=== PATIENT | female | born 1970 | race Caucasian/White ===

== ENCOUNTER 2021-05-07 20:55 | Emergency (ER) | payer BC, MEDICAID ==
[2021-05-07] MEDS ORDERED: diphenhydrAMINE 25 MG Cap PO ONE (20:57)
[2021-05-07] MEDS ORDERED: methylPREDNISolone Sodium Succinate 125 MG/2 ML SDV IM ONE (20:58)
--- NOTE | 2021-05-07 21:29 | EDM.PDOC ---
ED HPI GENERAL MEDICAL PROBLEM - General Chief Complaint: Allergic Reaction Stated Complaint: BEE STING REACTION Time Seen by Provider: 05/07/21 20:55 Source of Information: Reports: Patient, Family History Limitations: Reports: No Limitations - History of Present Illness INITIAL COMMENTS - FREE TEXT/NARRATIVE: pt arrived after being stung by a bee 1.5 hours earlier. She was stung on the rt hand. She did develop local swelling but no hives or generalized reaction. Onset: Today, Sudden Duration: Hour(s): Location: Reports: Upper Extremity, Right Associated Symptoms: Reports: Other (pt was very anxious on arrival but she did not have any generalized reaction. ) Right Finger-Ring Pain Score (Numeric/FACES): 9 - Related Data Allergies Allergy/AdvReac Type Severity Reaction Status Date / Time bee venom protein (honey bee) Allergy Hives Verified 05/07/21 21:03 codeine Allergy Nausea and Verified 05/07/21 21:03 Vomiting hydroxyzine [From Atarax] Allergy Nausea and Verified 05/07/21 21:03 Vomiting Home Meds: Home Meds Calcium Carbonate [Calcium] 500 mg PO DAILY 05/07/21 [History] Ferrous Fumarate/Vitamin C [Vitron-C] 1 tab PO DAILY 05/07/21 [History] Mecobalamin [B12 Active] 1,500 mcg PO DAILY 05/07/21 [History] Multivitamin with Minerals [Multiple Vitamin] 1 tab PO DAILY 05/07/21 [History] Gravity-3/DHA/Epa/Fish Oil [Fish Oil 500 MG Softgel] 1 each PO DAILY 05/07/21 [History] PARoxetine [Paxil] 20 mg PO TID 05/07/21 [History] Vitamin B Complex [B Complex] 1 each PO DAILY 05/07/21 [History] Past Medical History HEENT History: Reports: Impaired Vision Respiratory History: Reports: COPD Gastrointestinal History: Reports: Bowel Obstruction, Chronic Diarrhea, GERD Musculoskeletal History: Reports: Back Pain, Chronic Neurological History: Reports: Concussion Psychiatric History: Reports: Addiction, Anxiety, Depression Endocrine/Metabolic History: Reports: Obesity/BMI 30+ Hematologic History: Reports: Anemia, B12 Deficiency - Infectious Disease History Infectious Disease History: Reports: Chicken Pox - Past Surgical History GI Surgical History: Reports: Bariatric Procedure, Colostomy, EGD, Small Bowel Social & Family History - Tobacco Use Tobacco Use Status *Q: Current Every Day Tobacco User Years of Tobacco use: 30 Packs/Tins Daily: 0.5 - Caffeine Use Caffeine Use: Reports: Coffee - Alcohol Use Days Per Week of Alcohol Use: 7 Number of Drinks Per Day: 6 Total Drinks Per Week: 42 - Recreational Drug Use Recreational Drug Use: No ED ROS ALLERGIC REACTION - Review of Systems Review Of Systems: See Below Constitutional: Reports: No Symptoms HEENT: Reports: No Symptoms Respiratory: Reports: No Symptoms, Other Cardiovascular: Reports: No Symptoms Endocrine: Reports: No Symptoms GI/Abdominal: Reports: No Symptoms : Reports: No Symptoms Musculoskeletal: Reports: No Symptoms Skin: Reports: No Symptoms Neurological: Reports: Dizziness Psychiatric: Reports: No Symptoms ED EXAM GENERAL NO PERIP PULSE - Physical Exam Exam: See Below Text/Narrative:: pt arrived very anxious. She did not have hives and she did not have the generalized redness. her vitals were good. Exam Limited By: No Limitations General Appearance: Alert, Anxious Ears: Normal TMs Nose: Normal Inspection Throat/Mouth: Normal Inspection Head: Atraumatic Neck: Normal Inspection Respiratory/Chest: No Respiratory Distress Cardiovascular: Regular Rate, Rhythm GI/Abdominal: Soft, Non-Tender (Female) Exam: Deferred Rectal (Female) Exam: Deferred Back Exam: Normal Inspection Extremities: Other (pt has a swollen ring finger no hives or generalized redness. ) Neurological: Alert, Oriented, Normal Cognition Psychiatric: Anxious Course - Vital Signs Last Recorded V/S: Last Vital Signs Temp 36.7 C 05/07/21 20:59 Pulse 89 05/07/21 20:59 Resp 16 05/07/21 20:59 BP 118/69 05/07/21 20:59 Pulse Ox 99 05/07/21 20:59 - Orders/Labs/Meds Meds: Medications Discontinued Medications Generic Name Dose Route Start Last Admin Trade Name Freq PRN Reason Stop Dose Admin Diphenhydramine HCl 50 mg 05/07/21 20:57 Diphenhydramine 25 Mg Cap PO 05/07/21 20:58 ONETIME ONE Diphenhydramine HCl 50 mg 05/07/21 21:43 05/07/21 21:16 Diphenhydramine 50 Mg/Ml Sdv IM 05/07/21 21:44 50 mg ONETIME ONE Administration Methylprednisolone Sodium Succinate 125 mg 05/07/21 20:58 05/07/21 21:16 Methylprednisolone Sodium Succinate 125 Mg/2 Ml Sdv IM 05/07/21 20:59 125 mg ONETIME ONE Administration - Re-Assessments/Exams Free Text/Narrative Re-Assessment/Exam: 05/07/21 21:28 pt was given benadryl 50 mg im and solumedrol 125 im. Pt continued to have normal vital signs. pt was very anxious and was hyperventilating. 05/16/21 10:28 Departure - Departure Time of Disposition: 21:39 Disposition: Home, Self-Care 01 Condition: Fair Clinical Impression: Local reaction to bee sting - Discharge Information Instructions: Bee, Wasp, or Hornet Sting, Adult Referrals: Imer Abernathy Sr, MD [Primary Care Provider] - Forms: ED Department Discharge Care Plan Goals: cool pack finger, benadryl 50 mg q6h for 2 more doses. rtc if problems. Sepsis Event Note (ED) - Evaluation Sepsis Screening Result: No Definite Risk
[2021-05-07] MEDS ORDERED: diphenhydrAMINE 50 MG/ML SDV IM ONE (21:43)
== END 2021-05-07 21:50 | disposition home or self-care (01) ==
LOC: JP.ED 20:55
DX: T63.441A Toxic effect of venom of bees, accidental (unintentional), initial encounter (principal); J44.9 Chronic obstructive pulmonary disease, unspecified; D64.9 Anemia, unspecified; E66.9 Obesity, unspecified; Z68.37 Body mass index [BMI] 37.0-37.9, adult; Z72.0 Tobacco use; Z91.030 Bee allergy status; Z88.5 Allergy status to narcotic agent; Z88.8 Allergy status to other drugs, medicaments and biological substances; Z79.899 Other long term (current) drug therapy
CPT/HCPCS: 96372; 99282; J1200; J2930

== ENCOUNTER 2021-07-18 05:46 | Day surgery (SDC) | payer SELFPAY ==
[2021-07-18] MEDS ORDERED: Sodium Chloride 0.9% 1,000 ML IV SCH (07:00)
[2021-07-18] MEDS ORDERED: Propofol 200 MG/20 ML SDV ONE (07:06)
[2021-07-18] MEDS ORDERED: Midazolam 1 MG/ML 2 ML SDV ONE (07:06)
[2021-07-18] MEDS ORDERED: fentaNYL 100 MCG/2 ML SDV ONE (07:06)
[2021-07-18] MEDS ORDERED: Pantoprazole 40 MG Vial IVPUSH ONE (07:43)
--- NOTE | 2021-07-18 09:20 | PROC ---
DATE OF PROCEDURE: 07/18/2021 SURGEON: Imer Abernathy MD INDICATIONS: Leighann is a 51-year-old female who comes in for an esophagogastroduodenoscopy as she has had significant abdominal pain for a week and then 4 days ago she started to pass black stools. Her abdominal pain is significant to the point she almost came to the emergency room last night. The risks and benefits were explained to the patient for an esophagogastroduodenoscopy. PROCEDURE IN DETAIL: During the procedure, we used 2 mg of Versed, 200 mg of Propofol. The Olympus 180 scope was used, was placed into the mouth into the pharynx without difficulty and advanced under direct vision through the esophagus. Immediately upon entering the stomach, immediately noted a gastric ulcer. 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 We advanced the tube into the duodenum and no abnormality was found. The tube was brought back into the stomach. The ulcer was again identified, pictures were taken, and biopsies were done. Air was withdrawn from the stomach and small intestine. The tube was slowly retracted. No other abnormality was noted in the esophagus. The vocal cords moved symmetrically. No obvious pathology noted. PREOPERATIVE DIAGNOSIS: Abdominal pain. POSTOPERATIVE DIAGNOSIS: Gastric ulcer, biopsy report pending. Imer Abernathy MD /[id number] MTDD
== END 2021-07-18 08:56 | disposition home or self-care (01) ==
LOC: JP.SDS 05:46
PROVIDERS: ATTEND Internal Medicine
DX: K25.9 Gastric ulcer, unspecified as acute or chronic, without hemorrhage or perforation (principal); K31.89 Other diseases of stomach and duodenum; K29.50 Unspecified chronic gastritis without bleeding; I10 Essential (primary) hypertension; Z98.84 Bariatric surgery status
CPT/HCPCS: 43239; C9113; J2250; J2704; J3010; J7030; 88305

== ENCOUNTER 2021-08-10 06:30 | Day surgery (SDC) | payer MEDICAID ==
[2021-08-10] MEDS ORDERED: Sodium Chloride 0.9% 1,000 ML IV SCH (07:00)
[2021-08-10] MEDS ORDERED: Propofol 200 MG/20 ML SDV ONE ×3 (07:21→08:00)
[2021-08-10] MEDS ORDERED: fentaNYL 100 MCG/2 ML SDV ONE (07:22)
[2021-08-10] MEDS ORDERED: Midazolam 1 MG/ML 2 ML SDV ONE (07:22)
--- NOTE | 2021-08-10 14:56 | PROC ---
DATE OF PROCEDURE: SURGEON: Imer Abernathy MD INDICATIONS: Leighann is having significant abdominal pain on the left side of her abdomen on the upper and mid abdomen area. She recently had a CT of the abdomen, which showed thickening of the abdominal wall. The thickening was found in the ascending at the splenic flexure area. The risks and benefits were explained to Leighann for a colonoscopy. PROCEDURE IN DETAIL: Anesthesia was given by nurse precision mechanical instrument maker. During the procedure, we used 2 mg of Versed, 2 mcg of fentanyl, and 600 mg of propofol. The Olympus 180L scope was used, placed into rectum, and advanced under direct vision. At 60 cm, noted a polyp. This was biopsied. We noticed another polyp at the cecum. Finally, we took a picture of the cecum. Upon retraction of the tube, noted no lesions or ulceration. No abnormality except for the biopsy we did at 60 cm. No other lesions were noted. The tube was removed. The patient tolerated the procedure well. PREOPERATIVE DIAGNOSIS: Abdominal pain. POSTOPERATIVE DIAGNOSES: Two polyps biopsied, one at 60 cm and one at the cecum. Pathology report pending. I see no evidence of the thickening of the bowel wall at the splenic flexure as seen on the CT of the abdomen. Imer Abernathy MD /[id number]
== END 2021-08-10 09:10 | disposition home or self-care (01) ==
LOC: JP.SDS 06:30
PROVIDERS: ATTEND Internal Medicine
DX: D12.0 Benign neoplasm of cecum (principal); D12.6 Benign neoplasm of colon, unspecified; I10 Essential (primary) hypertension; Z01.812 Encounter for preprocedural laboratory examination; Z20.822 Contact with and (suspected) exposure to COVID-19
CPT/HCPCS: 45380; 87635; J2250; J2704; J3010; J7030; 88305; U0002

== ENCOUNTER 2021-09-27 14:13 | Emergency (ER) | payer MEDICAID ==
[2021-09-27 16:25] LABS: CORONAVIRUS COVID-19 NAA NEGATIVE (NEGATIVE)
[2021-09-27] MEDS ORDERED: Albuterol/Ipratropium 3.0-0.5 MG/3 ML Neb Soln NEB ONE (16:57)
--- NOTE | 2021-09-27 16:59 | EDM.PDOC ---
ED HPI GENERAL MEDICAL PROBLEM - General Chief Complaint: Respiratory Problem Stated Complaint: SHORTNESS OF BREATH Time Seen by Provider: 09/27/21 16:52 Source of Information: Reports: Patient, RN Notes Reviewed History Limitations: Reports: No Limitations - History of Present Illness INITIAL COMMENTS - FREE TEXT/NARRATIVE: 51-year-old female presents emergency department day complaint of shortness of breath, she has known history of COPD with an asthmatic component. She states she has been taking care of her family member with Covid is unvaccinated and was concerned she may have contracted the disease. - Related Data Allergies Allergy/AdvReac Type Severity Reaction Status Date / Time bee venom protein (honey bee) Allergy Hives Verified 09/27/21 15:20 codeine AdvReac Nausea and Verified 09/27/21 15:20 Vomiting hydroxyzine [From Atarax] AdvReac Nausea and Verified 09/27/21 15:20 Vomiting Home Meds: Home Meds Mecobalamin [B12 Active] 2,500 mcg PO DAILY 05/07/21 [History] Multivitamin with Minerals [Multiple Vitamin] 1 tab PO DAILY 05/07/21 [History] Vitamin B Complex [B Complex] 1 each PO DAILY 05/07/21 [History] Iron,Carbonyl/Ascorbic Acid [Vitron-C Tablet] 1 tab PO Q48H 07/17/21 [History] Pantoprazole Sodium [Protonix] 40 mg PO BID 07/17/21 [History] Albuterol [Proventil Neb Soln] 2.5 mg INH ASDIRECTED 07/18/21 [History] Albuterol [Proventil Neb Soln] 3 ml INH QID 09/27/21 [History] Past Medical History HEENT History: Reports: Impaired Vision Cardiovascular History: Reports: Hypertension Respiratory History: Reports: COPD Gastrointestinal History: Reports: Bowel Obstruction, Chronic Diarrhea, GERD Genitourinary History: Reports: Renal Calculus ACCESS REPRESENTATIVE History: Reports: None Musculoskeletal History: Reports: Back Pain, Chronic Neurological History: Reports: Concussion Psychiatric History: Reports: Addiction, Anxiety, Depression Endocrine/Metabolic History: Reports: Obesity/BMI 30+ Hematologic History: Reports: Anemia, B12 Deficiency Immunologic History: Reports: None Oncologic (Cancer) History: Reports: None Dermatologic History: Reports: None - Infectious Disease History Infectious Disease History: Reports: Chicken Pox - Past Surgical History Head Surgeries/Procedures: Reports: None HEENT Surgical History: Reports: Myringotomy w Tube(s), Tonsillectomy Cardiovascular Surgical History: Reports: None Respiratory Surgical History: Reports: None GI Surgical History: Reports: Bariatric Procedure, Colonoscopy, EGD, Hernia Repair/Other, Small Bowel Female Surgical History: Reports: Cystoscopy, Other (See Below) Other Female Surgeries/Procedures: NEPHROSTOGRAM Endocrine Surgical History: Reports: None Neurological Surgical History: Reports: None Oncologic Surgical History: Reports: None Dermatological Surgical History: Reports: None Social & Family History - Family History Family Medical History: No Pertinent Family History - Tobacco Use Tobacco Use Status *Q: Current Every Day Tobacco User Years of Tobacco use: 35 Packs/Tins Daily: 0.5 - Caffeine Use Caffeine Use: Reports: Coffee - Alcohol Use Days Per Week of Alcohol Use: 4 Number of Drinks Per Day: 3 Total Drinks Per Week: 12 - Recreational Drug Use Recreational Drug Use: No ED ROS GENERAL - Review of Systems Review Of Systems: See Below Constitutional: Denies: Fever, Chills HEENT: Reports: No Symptoms Respiratory: Reports: Shortness of Breath, Cough. Denies: Sputum Cardiovascular: Reports: Dyspnea on Exertion GI/Abdominal: Reports: No Symptoms ED EXAM, GENERAL - Physical Exam Exam: See Below Exam Limited By: No Limitations General Appearance: Alert, WD/WN, No Apparent Distress Respiratory/Chest: No Accessory Muscle Use, Chest Non-Tender, Decreased Breath Sounds. No: Wheezing Cardiovascular: Regular Rate, Rhythm, No Murmur Course - Vital Signs Last Recorded V/S: Last Vital Signs Temp 96.1 F L 09/27/21 17:21 Pulse 71 09/27/21 17:21 Resp 18 09/27/21 17:21 BP 122/64 09/27/21 17:21 Pulse Ox 98 09/27/21 17:21 - Orders/Labs/Meds Orders: Active Orders 24 hr Category Date Time Status RT Aerosol Therapy [RC] ASDIRECTED Care 09/27/21 16:57 Active Isolation [COMM] Stat Oth 09/27/21 14:14 Ordered Labs: Laboratory Tests 09/27/21 09/27/21 09/27/21 Range/Units 15:35 17:07 17:07 WBC 4.8 (4.5-11.0) K/uL RBC 3.58 (3.30-5.50) M/uL Hgb 11.5 L (12.0-15.0) g/dL Hct 34.0 L (36.0-48.0) % MCV 95 (80-98) fL MCH 32 H (27-31) pg MCHC 34 (32-36) % Plt Count 169 (150-400) K/uL Neut % (Auto) 47.9 (36-66) % Lymph % (Auto) 44.6 H (24-44) % [place] % (Auto) 6.3 H (2-6) % Eos % (Auto) 0.8 L (2-4) % Baso % (Auto) 0.4 (0-1) % Sodium 139 L (140-148) mmol/L Potassium 4.1 (3.6-5.2) mmol/L Chloride 105 (100-108) mmol/L Carbon Dioxide 23 (21-32) mmol/L Anion Gap 15.1 H (5.0-14.0) mmol/L BUN 11 (7-18) mg/dL Creatinine 0.6 (0.6-1.0) mg/dL Est Cr Clr Drug Dosing TNP Estimated GFR (MDRD) > 60 (>60) Glucose 88 (74-106) mg/dL Lactic Acid (0.4-2.0) mmol/L Calcium 8.2 L (8.5-10.1) mg/dL Total Bilirubin 0.3 (0.2-1.0) mg/dL AST 31 (15-37) U/L ALT 26 (12-78) U/L Alkaline Phosphatase 89 (46-116) U/L Total Protein 6.6 (6.4-8.2) g/dL Albumin 3.4 (3.4-5.0) g/dL Globulin 3.2 (2.3-3.5) g/dL Albumin/Globulin Ratio 1.1 L (1.2-2.2) Influenza Type A RNA Negative (NEGATIVE) RSV RNA (INAAT) Negative (NEGATIVE) Influenza Type B RNA Negative (NEGATIVE) SARS-CoV-2 RNA (CESIA) Negative (NEGATIVE) 09/27/21 Range/Units 17:07 WBC (4.5-11.0) K/uL RBC (3.30-5.50) M/uL Hgb (12.0-15.0) g/dL Hct (36.0-48.0) % MCV (80-98) fL MCH (27-31) pg MCHC (32-36) % Plt Count (150-400) K/uL Neut % (Auto) (36-66) % Lymph % (Auto) (24-44) % [place] % (Auto) (2-6) % Eos % (Auto) (2-4) % Baso % (Auto) (0-1) % Sodium (140-148) mmol/L Potassium (3.6-5.2) mmol/L Chloride (100-108) mmol/L Carbon Dioxide (21-32) mmol/L Anion Gap (5.0-14.0) mmol/L BUN (7-18) mg/dL Creatinine (0.6-1.0) mg/dL Est Cr Clr Drug Dosing Estimated GFR (MDRD) (>60) Glucose (74-106) mg/dL Lactic Acid 3.2 H (0.4-2.0) mmol/L Calcium (8.5-10.1) mg/dL Total Bilirubin (0.2-1.0) mg/dL AST (15-37) U/L ALT (12-78) U/L Alkaline Phosphatase (46-116) U/L Total Protein (6.4-8.2) g/dL Albumin (3.4-5.0) g/dL Globulin (2.3-3.5) g/dL Albumin/Globulin Ratio (1.2-2.2) Influenza Type A RNA (NEGATIVE) RSV RNA (INAAT) (NEGATIVE) Influenza Type B RNA (NEGATIVE) SARS-CoV-2 RNA (CESIA) (NEGATIVE) Meds: Medications Discontinued Medications Generic Name Dose Route Start Last Admin Trade Name Freq PRN Reason Stop Dose Admin Albuterol/Ipratropium 3 ml 09/27/21 16:57 09/27/21 17:18 Albuterol/Ipratropium 3.0-0.5 Mg/3 Ml Neb Soln NEB 09/27/21 16:58 3 ml ONETIME ONE Administration Departure - Departure Time of Disposition: 18:12 Disposition: Home, Self-Care 01 Condition: Fair Clinical Impression: COPD exacerbation - Discharge Information Instructions: Chronic Obstructive Pulmonary Disease Exacerbation Referrals: PCP,Unknown [Primary Care Provider] - Forms: ED Department Discharge Additional Instructions: Take full course of antibiotics, take full course of prednisone, use the albuterol inhaler as needed for shortness of breath, please followup with your primary care provider in 3-5 days if not better, please call return to the emergency department with worsening of symptoms. Sepsis Event Note (ED) - Evaluation Sepsis Screening Result: No Definite Risk - Focused Exam Vital Signs: Vital Signs Temp Pulse Resp BP Pulse Ox 09/27/21 17:21 96.1 F L 71 18 122/64 98 09/27/21 17:08 96.1 F L 09/27/21 16:50 74 18 99/57 L 99 09/27/21 16:38 77 114/58 L 95 09/27/21 16:20 77 18 112/61 98 09/27/21 15:45 84 18 118/52 L 98 09/27/21 15:28 95.9 F L 82 18 114/50 L 97 - My Orders Last 24 Hours: My Active Orders 09/27/21 14:14 Isolation [COMM] Stat 09/27/21 16:57 RT Aerosol Therapy [RC] ASDIRECTED - Assessment/Plan Last 24 Hours: My Active Orders 09/27/21 14:14 Isolation [COMM] Stat 09/27/21 16:57 RT Aerosol Therapy [RC] ASDIRECTED Plan: Assessment Acuity = acute Site and laterality = COPD exacerbation Etiology = suspicious for bacterial cause Manifestations = cough, wheezing at night Location of injury = Home Lab values = CBC CMP unremarkable lactic acid was elevated 3.5 consistent with lactic acidosis uncertain significance Plan Given her history of chronic lung disease elevated lactic acid elected to cover her doxycycline 100 mg p.o. twice daily x7 days, prednisone 20 mg once a day for 5 days and then a new albuterol inhaler she will follow-up with her primary care in 3 to 5 days for reevaluation This note was dictated using [employer] voice recognition software please call with any questions on syntax or grammar.
--- NOTE | 2021-09-27 17:50 | CRLCR ---
For Patients: As a result of the Cures Act, medical imaging exams and procedure reports are released immediately into your electronic medical record. You may view this report before your referring provider. If you have questions, please contact your health care provider. Indication: Shortness of breath, COPD. Technique: Chest 2 views. Comparison: None. Findings: Cardiovascular and mediastinum: Heart size and vasculature are normal in caliber and appearance. Lungs and pleural spaces: Lungs are clear. No sign of infiltrate or mass. No sign of pleural effusion. No pneumothorax. Bones and soft tissues: No significant findings. Impression: No acute or significant findings. Dictated by Peter Jimenez MD @ 09/27/2021 5:49:32 PM (Electronically Signed)
== END 2021-09-27 18:40 | disposition home or self-care (01) ==
LOC: JP.ED 14:13
DX: J44.1 Chronic obstructive pulmonary disease with (acute) exacerbation (principal); I10 Essential (primary) hypertension; E66.9 Obesity, unspecified; Z68.30 Body mass index [BMI] 30.0-30.9, adult; Z91.030 Bee allergy status; Z72.0 Tobacco use; Z20.822 Contact with and (suspected) exposure to COVID-19
CPT/HCPCS: 0241U; 36415; 71046; 80053; 83605; 85025; 94640; 99285; J7620-GY

== ENCOUNTER 2023-01-14 08:58 | Day surgery (SDC) | payer MEDICAID ==
[2023-01-14] MEDS ORDERED: Sodium Chloride 0.9% 1,000 ML IV SCH (09:30)
[2023-01-14] MEDS ORDERED: Midazolam 1 MG/ML 2 ML SDV ONE (09:38)
[2023-01-14] MEDS ORDERED: Propofol 200 MG/20 ML SDV ONE (09:38)
[2023-01-14] MEDS ORDERED: fentaNYL 100 MCG/2 ML SDV ONE (09:38)
== END 2023-01-14 11:30 | disposition home or self-care (01) ==
LOC: JP.SDS 08:58
PROVIDERS: ATTEND Internal Medicine
DX: R19.7 Diarrhea, unspecified (principal); R10.9 Unspecified abdominal pain; J44.9 Chronic obstructive pulmonary disease, unspecified; I10 Essential (primary) hypertension; F32.A Depression, unspecified; N20.0 Calculus of kidney; E66.9 Obesity, unspecified; Z88.5 Allergy status to narcotic agent; Z88.8 Allergy status to other drugs, medicaments and biological substances; Z98.84 Bariatric surgery status; Z68.33 Body mass index [BMI] 33.0-33.9, adult
CPT/HCPCS: 43235; J2250; J2704; J3010; J7030

== ENCOUNTER 2023-02-08 07:14 | Emergency (ER) | payer MEDICAID ==
[2023-02-08] MEDS ORDERED: Ketorolac 30 MG/ML SDV IM ONE (07:51)
[2023-02-08] MEDS ORDERED: Methocarbamol 500 MG Tab PO ONE (07:51)
== END 2023-02-08 09:55 | disposition home or self-care (01) ==
LOC: JP.ED 07:14
DX: S16.1XXA Strain of muscle, fascia and tendon at neck level, initial encounter (principal); S00.83XA Contusion of other part of head, initial encounter; I10 Essential (primary) hypertension; J44.9 Chronic obstructive pulmonary disease, unspecified; E66.9 Obesity, unspecified; Z91.030 Bee allergy status; Z88.5 Allergy status to narcotic agent; Z91.011 Allergy to milk products; Z72.0 Tobacco use; Z68.34 Body mass index [BMI] 34.0-34.9, adult; W01.0XXA Fall on same level from slipping, tripping and stumbling without subsequent striking against object, initial encounter; Y92.009 Unspecified place in unspecified non-institutional (private) residence as the place of occurrence of the external cause
CPT/HCPCS: 72125; 76377; 96372; 99283; 99284; A9270-GY; J1885

== ENCOUNTER → 2024-01-12 | Day surgery (SDC) | payer MEDICAID ==
[~2024-01-12] MED LIST: Propofol 200 MG/20 ML SDV ONE; fentaNYL 50 MCG/ML SDV ONE
[2024-01-12 11:18] LABS: BASOPHILS PERCENT AUTO 0.4 % (0.1-1.3); EOSINOPHILS ABSOLUTE AUTO 0.05 K/uL (0.00-0.40); EOSINOPHILS PERCENT AUTO 0.9 % (0.0-5.4); HEMATOCRIT 36.7 % (34.3-46.0); HEMOGLOBIN 12.9 g/dL (11.2-15.5); IMMATURE GRAN PERCENT AUTO 0.2 % (0.0-0.7); LYMPHOCYTES ABSOLUTE AUTO 1.12 K/uL (0.8-3.3); LYMPHOCYTES PERCENT AUTO 20.1 % (11.4-47.7); MEAN CORPUSCULAR HEMOGLOBIN 39.3 pg (31.6-35.5); MEAN CORPUSCULAR HGB CONC 35.1 g/dL (31.6-35.5); MEAN CORPUSCULAR VOLUME 111.9 fL (81.4-99.0); MONOCYTES ABSOLUTE AUTO 0.44 K/uL (0.20-0.90); MONOCYTES PERCENT AUTO 7.9 % (3.3-12.6); NEUTROPHILS ABSOLUTE AUTO 3.93 K/uL (1.0-7.6); NEUTROPHILS PERCENT AUTO 70.5 % (40.0-78.1); PLATELET COUNT,PLT 208 K/uL (130-375); WHITE BLOOD CELL COUNT,WBC 5.6 K/uL (3.2-11.0)
[2024-01-12] MEDS: Sodium Chloride 0.9% 1,000 ML IV SCH (11:20)
[2024-01-12] MEDS: Acetaminophen 1,000 MG in Premix Bag 1 BAG IV ONE (11:21)
[2024-01-12] MEDS: Ondansetron 4 MG/2 ML SDV IVPUSH ONE (11:22)
[2024-01-12 11:35] LABS: INR 1.1; PROTHROMBIN TIME 10.7 sec (9.2-10.6)
[2024-01-12 11:39] LABS: BASOPHILS ABSOLUTE AUTO 0.02 K/uL (0.00-0.10); IMMATURE GRAN ABSOLUTE AUTO 0.01 K/uL (0.00-0.23); RED BLOOD CELL COUNT 3.28 M/uL (3.77-5.24)
[2024-01-12 11:43] LABS: ALANINE AMINOTRANSFERASE,ALT 41 U/L (12-78); ALKALINE PHOSPHATASE 144 U/L (46-116); ASPARTATE AMNIOTRANSFERASE,AST 37 U/L (15-37); BILIRUBIN TOTAL 0.8 mg/dL (0.2-1.0); BLOOD UREA NITROGEN,BUN 12 mg/dL (7-18); CALCIUM 8.7 mg/dL (8.5-10.1); CARBON DIOXIDE,CO2 22 mmol/L (21-32); CHLORIDE,CL 102 mmol/L (100-108); CREATININE 0.6 mg/dL (0.6-1.0); EST CRCL DRUG DOSING (CG) 97.57 mL/min; ESTIMATED GFR 107 mL/min (>60); GLUCOSE RANDOM 86 mg/dL (74-106); POTASSIUM,K 4.3 mmol/L (3.6-5.2); SODIUM,NA 137 mmol/L (140-148)
[2024-01-12 11:44] LABS: ANION GAP 17.3 mmol/L (5.0-14.0); TROPONIN I HIGH SENSITIVITY 5.1 pg/mL (<=60.3)
[2024-01-12 11:56] LABS: CORONAVIRUS COVID-19 NAA NEGATIVE (NEGATIVE); INFLUENZA A NAA NEGATIVE (NEGATIVE); INFLUENZA B NAA NEGATIVE (NEGATIVE); RESPIRATORY SYNCYTIAL VIR NAA NEGATIVE (NEGATIVE)
[2024-01-12] MEDS: Sodium Chloride 0.9% 75 ML IV ONE (12:00)
[2024-01-12] MEDS: Iopamidol 612 MG/ML 100 ML Bottle IV PRN (12:00)
[2024-01-12] MEDS: Sodium Chloride 0.9% 10 ML Syringe FLUSH PRN (12:00)
[2024-01-12] MEDS: Pantoprazole 80 MG in Sodium Chloride 0.9% 100 ML IV ONE (12:58)
== END ==
LOC: JP.ED 09:55 → JP.SDS 13:33
PROVIDERS: ATTEND Internal Medicine
DX: K25.9 Gastric ulcer, unspecified as acute or chronic, without hemorrhage or perforation (principal); I10 Essential (primary) hypertension; J44.9 Chronic obstructive pulmonary disease, unspecified; K21.9 Gastro-esophageal reflux disease without esophagitis; F32.A Depression, unspecified; R10.9 Unspecified abdominal pain; Z88.6 Allergy status to analgesic agent; Z88.5 Allergy status to narcotic agent
CPT/HCPCS: 0241U; 36415; 43235; 74177; 80053; 80307; 83605; 83690; 84484; 85025; 85610; 93005; 96361; 96365; 96375; 99284; C9113; J0131; J2405; J2704; J3010; J3490; J7030; Q9967; 93010; 99285

== ENCOUNTER 2024-07-07 21:49 | Emergency (ER) | payer MEDICAID ==
[2024-07-07 22:32] LABS: BASOPHILS PERCENT AUTO 0.4 % (0.1-1.3); EOSINOPHILS ABSOLUTE AUTO 0.16 K/uL (0.00-0.40); EOSINOPHILS PERCENT AUTO 3.5 % (0.0-5.4); HEMATOCRIT 34.8 % (34.3-46.0); HEMOGLOBIN 12.6 g/dL (11.2-15.5); IMMATURE GRAN PERCENT AUTO 0.2 % (0.0-0.7); LYMPHOCYTES ABSOLUTE AUTO 1.96 K/uL (0.8-3.3); LYMPHOCYTES PERCENT AUTO 43.4 % (11.4-47.7); MEAN CORPUSCULAR HEMOGLOBIN 38.3 pg (31.6-35.5); MEAN CORPUSCULAR HGB CONC 36.2 g/dL (31.6-35.5); MEAN CORPUSCULAR VOLUME 105.8 fL (81.4-99.0); MONOCYTES ABSOLUTE AUTO 0.45 K/uL (0.20-0.90); NEUTROPHILS ABSOLUTE AUTO 1.92 K/uL (1.0-7.6); NEUTROPHILS PERCENT AUTO 42.5 % (40.0-78.1); PLATELET COUNT,PLT 147 K/uL (130-375); RED BLOOD CELL COUNT 3.29 M/uL (3.77-5.24); WHITE BLOOD CELL COUNT,WBC 4.5 K/uL (3.2-11.0)
[2024-07-07] MEDS ORDERED: fentaNYL 50 MCG/ML SDV IM ONE (22:32)
[2024-07-07 22:33] LABS: BASOPHILS ABSOLUTE AUTO 0.02 K/uL (0.00-0.10); IMMATURE GRAN ABSOLUTE AUTO 0.01 K/uL (0.00-0.23)
[2024-07-07] MEDS: droPERidol 5 MG/2 ML SDV IVPUSH ONE ×2 (22:37→22:46)
[2024-07-07] MEDS: Lactated Ringers 1,000 ML IV SCH (22:42)
[2024-07-07] MEDS: fentaNYL 50 MCG/ML SDV IVPUSH ONE (22:42)
[2024-07-07 22:54] LABS: A/G RATIO 1.1 (1.2-2.2); ALANINE AMINOTRANSFERASE,ALT 35 U/L (12-78); ALBUMIN 3.3 g/dL (3.4-5.0); ALKALINE PHOSPHATASE 156 U/L (46-116); ANION GAP 18.1 mmol/L (5.0-14.0); ASPARTATE AMNIOTRANSFERASE,AST 36 U/L (15-37); BILIRUBIN TOTAL 0.5 mg/dL (0.2-1.0); BLOOD UREA NITROGEN,BUN 6 mg/dL (7-18); CALCIUM 8.7 mg/dL (8.5-10.1); CARBON DIOXIDE,CO2 19 mmol/L (21-32); CHLORIDE,CL 100 mmol/L (100-108); CREATININE 0.6 mg/dL (0.6-1.0); EST CRCL DRUG DOSING (CG) 97.57 mL/min; ESTIMATED GFR 107 mL/min (>60); GLUCOSE RANDOM 99 mg/dL (74-106); POTASSIUM,K 3.1 mmol/L (3.6-5.2); PROTEIN TOTAL,TP 6.4 g/dL (6.4-8.2); SODIUM,NA 134 mmol/L (140-148)
[2024-07-07 23:00] LABS: APPEARANCE,URINE CLEAR (CLEAR); BILIRUBIN,URINE NEGATIVE (NEGATIVE); COLOR,URINE YELLOW (YELLOW); GLUCOSE,URINE NEGATIVE (NEGATIVE); KETONES,URINE NEGATIVE (NEGATIVE); LEUKOCYTE ESTERASE,URINE NEGATIVE (NEGATIVE); NITRITE,URINE NEGATIVE (NEGATIVE); OCCULT BLOOD,URINE NEGATIVE (NEGATIVE); PH,URINE 5.5 (5.0-8.0); PROTEIN,URINE NEGATIVE (NEGATIVE); UROBILINOGEN,URINE 0.2 EU/dL (0.2-1.0)
[2024-07-07 23:04] LABS: AMORPHOUS SEDIMENT,URINE NOT SEEN; BACTERIA,URINE FEW; EPITHELIAL CELLS,URINE FEW; MUCUS,URINE FEW; RBC,URINE 0-5 (0-5); WBC,URINE 0-5 (0-5)
[2024-07-07] MEDS: Sodium Chloride 0.9% 10 ML Syringe FLUSH PRN (23:13)
[2024-07-07] MEDS: Sodium Chloride 0.9% 80 ML IV SCH (23:14)
[2024-07-07] MEDS: Iopamidol 612 MG/ML 100 ML Bottle IV SCH (23:14)
[2024-07-08] MEDS: fentaNYL 50 MCG/ML SDV IVPUSH ONE (01:28)
== END 2024-07-08 02:25 | disposition home or self-care (01) ==
LOC: JP.ED 21:49
DX: R10.13 Epigastric pain (principal); I10 Essential (primary) hypertension; J44.9 Chronic obstructive pulmonary disease, unspecified; K21.9 Gastro-esophageal reflux disease without esophagitis; E66.9 Obesity, unspecified; F17.210 Nicotine dependence, cigarettes, uncomplicated; Z90.49 Acquired absence of other specified parts of digestive tract; Z79.899 Other long term (current) drug therapy; Z88.5 Allergy status to narcotic agent; Z91.011 Allergy to milk products; Z91.013 Allergy to seafood; Z88.8 Allergy status to other drugs, medicaments and biological substances; Z68.31 Body mass index [BMI] 31.0-31.9, adult
CPT/HCPCS: 36415; 74177; 80053; 81001; 83605; 83690; 85025; 96361; 96374; 96375; 96376; 99285; J1790; J3010; J3490; J7120; Q9967

== ENCOUNTER 2024-07-27 06:27 | Day surgery (SDC) | payer MEDICAID ==
[2024-07-27] MEDS: Sodium Chloride 0.9% 1,000 ML IV SCH (06:55)
[2024-07-27] MEDS ORDERED: fentaNYL 100 MCG/2 ML SDV ONE (07:22)
[2024-07-27] MEDS ORDERED: Midazolam 1 MG/ML 2 ML SDV ONE (07:22)
[2024-07-27] MEDS ORDERED: Propofol 200 MG/20 ML SDV ONE ×3 (07:22→08:01)
[2024-07-27] MEDS ORDERED: Ondansetron 4 MG/2 ML SDV ONE (07:25)
[2024-07-27] MEDS: ceFAZolin 2 GM in Premix Bag 1 BAG IV ONE (07:40)
[2024-07-27] MEDS: Lidocaine 1% with EPINEPHrine 1:100,000 50 ML MDV ONE (08:07)
[2024-07-27] MEDS: Bupivacaine 0.5% 50 ML MDV ONE (08:07)
[2024-07-27] MEDS: Acetaminophen 500 MG Tab PO ONE (09:25)
== END 2024-07-27 09:46 | disposition home or self-care (01) ==
LOC: JP.SDS 06:27
PROVIDERS: ATTEND Surgery
DX: Z45.2 Encounter for adjustment and management of vascular access device (principal); I10 Essential (primary) hypertension; J44.9 Chronic obstructive pulmonary disease, unspecified
CPT/HCPCS: 36561; 71045; 76000; A9270; C1788; C1894; J0665; J0690; J1642; J2250; J2405; J2704; J3010; J7030; 00532-QZ

== ENCOUNTER 2024-08-20 06:03 | Day surgery (SDC) | payer MEDICAID ==
[2024-08-20] MEDS ORDERED: fentaNYL 50 MCG/ML SDV ONE (06:29)
[2024-08-20] MEDS ORDERED: Propofol 200 MG/20 ML SDV ONE ×2 (06:29→07:08)
[2024-08-20] MEDS: Lactated Ringers 1,000 ML IV SCH (06:48)
[2024-08-20 07:28] LABS: BILIRUBIN DIRECT 0.24 mg/dL (0.0-0.2); BILIRUBIN TOTAL 0.6 mg/dL (0.2-1.0)
== END 2024-08-20 08:40 | disposition home or self-care (01) ==
LOC: JP.SDS 06:03
PROVIDERS: ATTEND Internal Medicine
DX: K51.90 Ulcerative colitis, unspecified, without complications (principal)
CPT/HCPCS: 00731; 36415; 36591; 43239; 82150; 82247; 82248; 83690; 84075; J1642; J2704; J3010; J7120; 88305

== ENCOUNTER 2025-02-08 13:17 | Emergency (ER) | payer MEDICAID ==
[2025-02-08 14:19] LABS: BASOPHILS ABSOLUTE AUTO 0.03 K/uL (0.00-0.10); BASOPHILS PERCENT AUTO 0.7 % (0.1-1.3); EOSINOPHILS ABSOLUTE AUTO 0.06 K/uL (0.00-0.40); EOSINOPHILS PERCENT AUTO 1.4 % (0.0-5.4); HEMATOCRIT 34.4 % (34.3-46.0); HEMOGLOBIN 12.1 g/dL (11.2-15.5); IMMATURE GRAN PERCENT AUTO 0.2 % (0.0-0.7); LYMPHOCYTES PERCENT AUTO 21.4 % (11.4-47.7); MEAN CORPUSCULAR HEMOGLOBIN 39.4 pg (31.6-35.5); MEAN CORPUSCULAR HGB CONC 35.2 g/dL (31.6-35.5); MEAN CORPUSCULAR VOLUME 112.1 fL (81.4-99.0); MONOCYTES ABSOLUTE AUTO 0.19 K/uL (0.20-0.90); MONOCYTES PERCENT AUTO 4.5 % (3.3-12.6); NEUTROPHILS ABSOLUTE AUTO 3.01 K/uL (1.0-7.6); NEUTROPHILS PERCENT AUTO 71.8 % (40.0-78.1); PLATELET COUNT,PLT 146 K/uL (130-375); RED BLOOD CELL COUNT 3.07 M/uL (3.77-5.24); WHITE BLOOD CELL COUNT,WBC 4.2 K/uL (3.2-11.0)
[2025-02-08 14:23] LABS: IMMATURE GRAN ABSOLUTE AUTO 0.01 K/uL (0.00-0.23)
[2025-02-08 14:44] LABS: ALANINE AMINOTRANSFERASE,ALT 159 U/L (12-78); ALKALINE PHOSPHATASE 169 U/L (46-116); ASPARTATE AMNIOTRANSFERASE,AST 206 U/L (15-37); BLOOD UREA NITROGEN,BUN 12 mg/dL (7-18); CALCIUM 8.7 mg/dL (8.5-10.1); CARBON DIOXIDE,CO2 25 mmol/L (21-32); CHLORIDE,CL 102 mmol/L (100-108); CREATININE 0.6 mg/dL (0.6-1.0); EST CRCL DRUG DOSING (CG) 96.45 mL/min; ESTIMATED GFR 107 mL/min (>60); GLUCOSE RANDOM 106 mg/dL (74-106); POTASSIUM,K 3.4 mmol/L (3.6-5.2); SODIUM,NA 137 mmol/L (140-148); TROPONIN I HIGH SENSITIVITY 4.9 pg/mL (<=60.3)
[2025-02-08 14:46] LABS: ANION GAP 13.4 mmol/L (5.0-14.0)
[2025-02-08 14:58] LABS: CORONAVIRUS COVID-19 NAA NEGATIVE (NEGATIVE); INFLUENZA A NAA NEGATIVE (NEGATIVE); INFLUENZA B NAA NEGATIVE (NEGATIVE); RESPIRATORY SYNCYTIAL VIR NAA NEGATIVE (NEGATIVE)
[2025-02-08] MEDS: Albuterol/Ipratropium 3.0-0.5 MG/3 ML Neb Soln NEB ONE (15:30)
[2025-02-08] MEDS: methylPREDNISolone Sodium Succinate 125 MG/2 ML SDV IVPUSH ONE (15:38)
[2025-02-08] MEDS: Magnesium Sulf/Wat 2 GM/50 mL 2 GM in Premix Bag 1 BAG IV ONE (15:38)
[2025-02-08] MEDS: Iopamidol 612 MG/ML 100 ML Bottle IV SCH (17:08)
[2025-02-08] MEDS: Sodium Chloride 0.9% 80 ML IV SCH (17:08)
[2025-02-08] MEDS: Sodium Chloride 0.9% 10 ML Syringe FLUSH ONE (18:59)
[2025-02-08 19:08] LABS: APPEARANCE,URINE CLEAR (CLEAR); BILIRUBIN,URINE NEGATIVE (NEGATIVE); COLOR,URINE YELLOW (YELLOW); GLUCOSE,URINE NEGATIVE (NEGATIVE); KETONES,URINE TRACE mg/dL (NEGATIVE); LEUKOCYTE ESTERASE,URINE NEGATIVE (NEGATIVE); NITRITE,URINE NEGATIVE (NEGATIVE); OCCULT BLOOD,URINE NEGATIVE (NEGATIVE); PH,URINE 5.5 (5.0-8.0); PROTEIN,URINE NEGATIVE (NEGATIVE)
[2025-02-08 19:15] LABS: AMORPHOUS SEDIMENT,URINE NOT SEEN; BACTERIA,URINE RARE; EPITHELIAL CELLS,URINE RARE; MUCUS,URINE NOT SEEN; RBC,URINE 0-5 (0-5); WBC,URINE NOT SEEN (0-5)
[2025-02-08] MEDS: Albuterol 0.083% 2.5 MG/3 ML Neb Soln NEB ONE (19:52)
== END 2025-02-08 20:23 | disposition home or self-care (01) ==
LOC: JP.ED 13:17
DX: J44.1 Chronic obstructive pulmonary disease with (acute) exacerbation (principal); E83.42 Hypomagnesemia; I10 Essential (primary) hypertension; J44.89 Other specified chronic obstructive pulmonary disease; K21.9 Gastro-esophageal reflux disease without esophagitis; E66.9 Obesity, unspecified; F17.210 Nicotine dependence, cigarettes, uncomplicated; Z68.29 Body mass index [BMI] 29.0-29.9, adult; Z98.84 Bariatric surgery status; Z90.49 Acquired absence of other specified parts of digestive tract; Z88.5 Allergy status to narcotic agent; Z88.8 Allergy status to other drugs, medicaments and biological substances; Z91.030 Bee allergy status; Z91.011 Allergy to milk products; Z79.51 Long term (current) use of inhaled steroids; Z79.899 Other long term (current) drug therapy
CPT/HCPCS: 0241U; 36415; 71046; 74177; 80053; 81001; 83735; 84484; 85025; 86140; 93005; 93010; 94640; 96365; 96366; 96375; 99284; 99285; J2919; J3475; J7613; J7620; Q9967; A9270-GY

== ENCOUNTER 2025-03-24 15:43 | Emergency (ER) | payer MEDICAID ==
[2025-03-24] MEDS: Famotidine 20 MG Tab PO ONE (16:04)
[2025-03-24] MEDS: methylPREDNISolone Sodium Succinate 125 MG/2 ML SDV IM ONE (16:04)
== END 2025-03-24 16:48 | disposition home or self-care (01) ==
LOC: JP.ED 15:43
DX: T63.441A Toxic effect of venom of bees, accidental (unintentional), initial encounter (principal); I10 Essential (primary) hypertension; F17.200 Nicotine dependence, unspecified, uncomplicated; J44.89 Other specified chronic obstructive pulmonary disease; E66.9 Obesity, unspecified; Z79.899 Other long term (current) drug therapy; Z79.51 Long term (current) use of inhaled steroids; Z90.49 Acquired absence of other specified parts of digestive tract
CPT/HCPCS: 96372; 99283; A9270; J2919